=== PATIENT | female | born 1970 | race Caucasian/White ===

== ENCOUNTER → 2020-05-27 | Outpatient (CLI) | payer MEDICARE, OTHER ==
[~2020-05-27] MED LIST: STADOL
== END ==
LOC: CT 05-15 11:30
DX: K55.1 Chronic vascular disorders of intestine (principal); K76.0 Fatty (change of) liver, not elsewhere classified; N20.0 Calculus of kidney; Z96.89 Presence of other specified functional implants
CPT/HCPCS: Q9967